=== PATIENT | male | born 1990 | race Hispanic/Latino ===

== ENCOUNTER 2022-12-15 13:37 | Emergency (ER) | payer BC, OTHER ==
[~2022-12-15] VITALS: Ht 170.2 cm; Wt 81.6 kg
[2022-12-15] MEDS ORDERED: ONDANSETRON HCL INJ 2MG/ML 2ML 2 MG/ML VIAL IV STA (13:43)
[2022-12-15] MEDS ORDERED: FENTANYL CITRATE/PF 100MCG/2 ML INJ IV ONE (13:45)
[2022-12-15] MEDS ORDERED: NAPROXEN250 MG PO (14:18)
== END 2022-12-15 15:14 | disposition home or self-care (01) ==
LOC: ER 13:45
DX: S43.085A Other dislocation of left shoulder joint, initial encounter (principal); X50.9XXA Other and unspecified overexertion or strenuous movements or postures, initial encounter; Y92.89 Other specified places as the place of occurrence of the external cause
CPT/HCPCS: 23650; 73020; 73030; 99283; J2405; J3010